=== PATIENT | female | born 1980 | race African-American/Black ===

== ENCOUNTER 2016-09-09 15:04 | Inpatient (IN) | payer OTHER ==
[~2016-09-09] VITALS: Ht 167.6 cm; Wt 67.8 kg
[2016-09-09 17:11] LABS: BASOPHILS % 1.1 % (0.0-2.0); EOSINOPHILS % 0.6 % (0.0-5.0); HEMATOCRIT. 37.4 % (36.0-48.0); HEMOGLOBIN. 11.9 g/dL (12.0-16.0); LYMPHOCYTES % 8.3 % (20.0-50.0); MEAN CORPUSCULAR HEMOGLOBIN 29.8 pg (28.0-32.0); MEAN CORPUSCULAR HGB CONC 31.9 g/dL (31.0-37.0); MEAN CORPUSCULAR VOLUME 93.4 fL (81.0-99.0); MEAN PLATELET VOLUME 6.8 fl (7.4-10.4); PLATELET 209 x1000/uL (130-400); RED CELL DISTRIBUTION WIDTH 14.7 % (11.6-14.6); WHITE BLOOD COUNT 7.5 x1000/uL (4.5-11.0)
[2016-09-09 17:24] LABS: ALANINE AMINOTRANSFERASE 30 IU/L (13-61); ALBUMIN 2.7 g/dL (3.4-5.0); ANION GAP 15; CALCIUM 8.5 mg/dL (8.5-10.1); CARBON DIOXIDE 29 mEq/L (21-32); CHLORIDE 102 mEq/L (98-107); INDEX HEMOLYSI 1 (1-3); INDEX ICTERIC 1 (1-4); INDEX LIPEMIC 1 (1-3); UREA NITROGEN BLOOD 79 mg/dL (7-21); eGFR 5 mL/min (>60)
[2016-09-09] MEDS ORDERED: DEXT 5% WATER 100 ML IV ONE (19:45)
[2016-09-09] MEDS ORDERED: ONDANSETRON HCL 4MG/2ML VIAL IV PRN (20:15)
[2016-09-09] MEDS ORDERED: IPRATROPIUM/ALBUTEROL 0.5-3(2.5)MG/3ML NEB INH PRN (20:15)
[2016-09-09] MEDS ORDERED: CLONIDINE 0.1MG TABLET PO PRN (20:15)
[2016-09-09] MEDS ORDERED: ACETAMINOPHEN 325MG TABLET PO PRN (20:15)
[2016-09-09] MEDS ORDERED: MAGNESIUM/ALUMINUM HYDROXIDE/SIMETHICONE 30ML UDC PO PRN (20:15)
[2016-09-09] MEDS ORDERED: DEXTROSE 50% WATER 50ML SYRINGE IV PRN (20:15)
[2016-09-09] MEDS: DEXTROSE 5% WATER 1,000 ML IV SCH (22:00)
[2016-09-09 22:24] LABS: ANION GAP 14; CALCIUM 8.4 mg/dL (8.5-10.1); CARBON DIOXIDE 31 mEq/L (21-32); CHLORIDE 101 mEq/L (98-107); CREATINE KINASE 153 IU/L (26-192); CREATINE KINASE MB FRACTION 1.1 ng/mL (0.5-3.6); INDEX HEMOLYSI 1 (1-3); INDEX ICTERIC 1 (1-4); INDEX LIPEMIC 1 (1-3); TROPONIN I < 0.02 ng/mL (0.00-0.04); eGFR 5 mL/min (>60)
[2016-09-09 22:29] LABS: UREA NITROGEN BLOOD 81 mg/dL (7-21)
[2016-09-09 23:25] VITALS: BP 116/78
[2016-09-10] VITALS: BP 116/78
[2016-09-10] MEDS: HYDROCODONE/ACETAMINOPHEN 5/325MG TABLET PO PRN ×2 (01:15→16:06)
[2016-09-10] MEDS ORDERED: PLAQUINIL (04:17)
[2016-09-10] MEDS ORDERED: PRED5TAB48 PO (04:17)
[2016-09-10] MEDS ORDERED: lozartan (04:17)
[2016-09-10] MEDS ORDERED: HYDR-4134 PO (04:17)
[2016-09-10] MEDS ORDERED: CALCIUM ACETATE (04:17)
[2016-09-10] MEDS ORDERED: FOLI-43 PO (04:17)
[2016-09-10 06:00] VITALS: BP 115/83
[2016-09-10 06:40] LABS: BASOPHILS % 1.1 % (0.0-2.0); EOSINOPHILS % 2.1 % (0.0-5.0); HEMATOCRIT. 34.6 % (36.0-48.0); HEMOGLOBIN. 10.8 g/dL (12.0-16.0); LYMPHOCYTES % 20.9 % (20.0-50.0); MEAN CORPUSCULAR HEMOGLOBIN 29.4 pg (28.0-32.0); MEAN CORPUSCULAR HGB CONC 31.3 g/dL (31.0-37.0); MEAN CORPUSCULAR VOLUME 93.8 fL (81.0-99.0); MEAN PLATELET VOLUME 7.4 fl (7.4-10.4); NEUTROPHILS % 65.9 % (40.0-76.0); PLATELET 212 x1000/uL (130-400); RED BLOOD CELL COUNT 3.69 mill/uL (4.2-5.4); RED CELL DISTRIBUTION WIDTH 14.2 % (11.6-14.6)
[2016-09-10 08:18] VITALS: BP 121/88
[2016-09-10] MEDS: DEXTROSE 50% WATER 50ML SYRINGE IV PRN (08:44)
[2016-09-10] MEDS: PREDNISONE 5MG TABLET PO SCH (08:45)
[2016-09-10] MEDS: HYDRALAZINE HCL 25MG TABLET PO SCH (08:45)
[2016-09-10] MEDS: FOLIC ACID 1MG TABLET PO SCH (08:45)
[2016-09-10] MEDS: LOSARTAN POTASSIUM 50 MG TABLET PO SCH (08:45)
[2016-09-10] MEDS: HYDROXYCHLOROQUINE SULFATE 200MG TABLET PO SCH (08:45)
[2016-09-10] MEDS: CALCIUM ACETATE 667MG CAPSULE PO SCH ×3 (08:45→18:26)
[2016-09-10] MEDS: DEXTROSE 5% WATER 1,000 ML IV SCH (09:01)
[2016-09-10 09:59] LABS: CREATINE KINASE 117 IU/L (26-192); CREATINE KINASE MB FRACTION 1.2 ng/mL (0.5-3.6); HDL CHOLESTEROL 24 mg/dL (40-59); INDEX HEMOLYSI 1 (1-3); INDEX ICTERIC 1 (1-4); INDEX LIPEMIC 1 (1-3); LDL CHOLESTEROL 93 mg/dL (5-100); TRIGLYCERIDE 207 mg/dL (0-150); TROPONIN I < 0.02 ng/mL (0.00-0.04)
[2016-09-10] MEDS: BLOOD SUGAR DIAGNOSTIC STRIP TEST SCH ×3 (13:05→21:26)
[2016-09-10 17:01] LABS: CLARITY URINE TURBID (CLEAR); COLOR URINE ORANGE (YELLOW); GLUCOSE URINE NEGATIVE (NEGATIVE); KETONES URINE NEGATIVE (NEGATIVE); LEUKOCYTE ESTERASE URINE 3+ (NEGATIVE); NITRITE URINE NEGATIVE (NEGATIVE); OCCULT BLOOD URINE 3+ (NEGATIVE); PROTEIN URINE 4+ (NEGATIVE); SPECIFIC GRAVITY URINE 1.015 (1.005-1.030); UROBILINOGEN URINE 0.2 E.U./dL (0.2-1.0)
[2016-09-10 17:31] LABS: BACTERIA URINE 2+; RBC URINE TNTC /hpf (0-2); SQUAMOUS EPITHELIAL CELL URINE 1+ /lpf (RARE/1+); WBC URINE TNTC /hpf (0-2)
[2016-09-10] MEDS: INSULIN LISPRO 100 UNITS/ML SUBCUT SCH ×2 (17:50→21:34)
[2016-09-10 18:30] LABS: *AMPHETAMINES SCREEN URINE NEGATIVE (NEGATIVE); *BARBITURATES SCREEN URINE NEGATIVE (NEGATIVE); *BENZODIAZEPINES SCREEN URINE NEGATIVE (NEGATIVE); *COCAINE SCREEN URINE NEGATIVE (NEGATIVE); CANNABINOID URINE SCREEN NEGATIVE (NEGATIVE); ECSTASY MDMA SCREEN URINE NEGATIVE (NEGATIVE); METHADONE URINE SCREEN NEGATIVE (NEGATIVE); OPIATES URINE SCREEN NEGATIVE (NEGATIVE); PHENCYCLIDINE URINE SCREEN NEGATIVE (NEGATIVE)
[2016-09-10 20:00] VITALS: BP 133/94
[2016-09-10 20:10] LABS: BODY FLUID MONOCYTES 91 %; BODY FLUID WBC 337 /cu mm (0-200)
[2016-09-10] MEDS ORDERED: ZOLPIDEM TARTRATE 5MG TABLET PO PRN (23:00)
[2016-09-11 00:01] VITALS: BP 138/94
[2016-09-11] MEDS: DEXTROSE 50% WATER 50ML SYRINGE IV PRN (00:01)
[2016-09-11 04:30] VITALS: BP 132/95
[2016-09-11] MEDS: BLOOD SUGAR DIAGNOSTIC STRIP TEST SCH ×7 (06:28→21:26)
[2016-09-11] MEDS: INSULIN LISPRO 100 UNITS/ML SUBCUT SCH ×4 (06:29→21:00)
[2016-09-11] MEDS ORDERED: DEXTROSE 5% WATER 1,000 ML IV SCH (06:45)
[2016-09-11 06:52] LABS: EOSINOPHILS % 1.7 % (0.0-5.0); HEMATOCRIT. 34.6 % (36.0-48.0); HEMOGLOBIN. 10.8 g/dL (12.0-16.0); LYMPHOCYTES % 17.3 % (20.0-50.0); MEAN CORPUSCULAR HGB CONC 31.3 g/dL (31.0-37.0); MEAN CORPUSCULAR VOLUME 92.4 fL (81.0-99.0); MEAN PLATELET VOLUME 7.3 fl (7.4-10.4); MONOCYTES % 9.5 % (2.0-8.0); NEUTROPHILS % 70.5 % (40.0-76.0); PLATELET 230 x1000/uL (130-400); RED BLOOD CELL COUNT 3.74 mill/uL (4.2-5.4); RED CELL DISTRIBUTION WIDTH 14.2 % (11.6-14.6); WHITE BLOOD COUNT 6.1 x1000/uL (4.5-11.0)
[2016-09-11 07:38] LABS: ALANINE AMINOTRANSFERASE 23 IU/L (13-61); ALBUMIN 2.1 g/dL (3.4-5.0); CHLORIDE 103 mEq/L (98-107); INDEX HEMOLYSI 1 (1-3); INDEX ICTERIC 1 (1-4); INDEX LIPEMIC 1 (1-3)
[2016-09-11 07:41] LABS: ANION GAP 15; CALCIUM 7.5 mg/dL (8.5-10.1); CARBON DIOXIDE 25 mEq/L (21-32); UREA NITROGEN BLOOD 74 mg/dL (7-21); eGFR 5 mL/min (>60)
[2016-09-11] MEDS: CALCIUM ACETATE 667MG CAPSULE PO SCH ×3 (07:50→17:45)
[2016-09-11 08:00] VITALS: BP 125/91
[2016-09-11] MEDS: HYDROXYCHLOROQUINE SULFATE 200MG TABLET PO SCH ×2 (09:00→11:10)
[2016-09-11] MEDS: PREDNISONE 5MG TABLET PO SCH ×2 (09:00→11:10)
[2016-09-11] MEDS: LOSARTAN POTASSIUM 50 MG TABLET PO SCH ×2 (09:00→11:09)
[2016-09-11] MEDS: HYDRALAZINE HCL 25MG TABLET PO SCH ×2 (09:00→11:09)
[2016-09-11] MEDS: FOLIC ACID 1MG TABLET PO SCH ×2 (09:00→11:10)
[2016-09-11] MEDS ORDERED: DEXTROSE 50% WATER 50ML SYRINGE IV PRN (12:30)
[2016-09-11] MEDS ORDERED: CEFTAZIDIME PENTAHYDRATE 1 G in DEXTROSE 5% WATER 50 ML IV SCH (13:00)
[2016-09-11] MEDS ORDERED: VANCOMYCIN 1,250 MG in DEXT 5% WATER 250 ML IV SCH (13:30)
[2016-09-11] MEDS ORDERED: VANCOMYCIN IV SCH (13:40)
[2016-09-11] MEDS ORDERED: [UNRECOGNIZED DRUG - OTHER] IV SCH (13:40)
[2016-09-11] MEDS ORDERED: CEFTAZIDIME PENTAHYDRATE IV SCH (13:40)
[2016-09-11] MEDS ORDERED: BLOOD SUGAR DIAGNOSTIC STRIP TEST SCH (17:20)
[2016-09-11 17:21] VITALS: BP 122/84
[2016-09-11 20:00] VITALS: BP 140/108
[2016-09-11] MEDS ORDERED: VANCOMYCIN 500 MG PREMIX 100 ML IV SCH (21:00)
[2016-09-12] MEDS ORDERED: LEVOFLOXACIN 250MG TABLET PO SCH (11:15)
== END 2016-09-11 23:05 | disposition short-term general hospital (02) | DRG 637 ==
LOC: ER 15:05 → 6WST 19:46
PROVIDERS: ADMIT Internal Medicine; ATTEND Internal Medicine
PROC: 3E1M39Z Irrigation of Peritoneal Cavity using Dialysate, Percutaneous Approach (ICD-10-PCS; principal; 2016-09-10)
DX: E11.649 Type 2 diabetes mellitus with hypoglycemia without coma (principal); E43 Unspecified severe protein-calorie malnutrition; I12.0 Hypertensive chronic kidney disease with stage 5 chronic kidney disease or end stage renal disease; N39.0 Urinary tract infection, site not specified; N18.6 End stage renal disease; D64.9 Anemia, unspecified; E11.22 Type 2 diabetes mellitus with diabetic chronic kidney disease; Z79.4 Long term (current) use of insulin; Z99.2 Dependence on renal dialysis; Z88.1 Allergy status to other antibiotic agents; B96.89 Other specified bacterial agents as the cause of diseases classified elsewhere
CPT/HCPCS: 36415; 80048; 80053; 80061; 80305; 81001; 82533; 82550; 82553; 82962; 84443; 84484; 85025; 87040; 87070; 87077; 87086; 87186; 87205; 89050; 93005; 93970; 96360; 96361; 99285; J0713; J1815; J3370; J7042; J7060; J7070; J7512

== ENCOUNTER 2017-02-25 17:09 | Inpatient (IN) | payer OTHER ==
[~2017-02-25] VITALS: Ht 170.2 cm; Wt 70.3 kg
[~2017-02-25 17:09] MED LIST: CALCIUM ACETATE; FOLI-43 PO; HYDR-4134 PO; PLAQUINIL; PRED5TAB48 PO; lozartan
[2017-02-25] MEDS ORDERED: MORPHINE SULFATE 4 MG/ML CPJ (NOT FOR IM USE) IV STA (17:26)
[2017-02-25] MEDS ORDERED: KETOROLAC 30MG/ML VIAL IV STA (17:26)
[2017-02-25] MEDS ORDERED: ONDANSETRON HCL 4MG/2ML VIAL IV STA (17:26)
[2017-02-25 17:54] LABS: BASOPHILS % 0.6 % (0.0-2.0); EOSINOPHILS % 1.5 % (0.0-5.0); HEMATOCRIT. 34.2 % (36.0-48.0); HEMOGLOBIN. 10.8 g/dL (12.0-16.0); LYMPHOCYTES % 19.6 % (20.0-50.0); MEAN CORPUSCULAR HEMOGLOBIN 29.1 pg (28.0-32.0); MEAN CORPUSCULAR VOLUME 91.6 fL (81.0-99.0); MEAN PLATELET VOLUME 6.7 fl (7.4-10.4); MONOCYTES % 5.6 % (2.0-8.0); NEUTROPHILS % 72.7 % (40.0-76.0); PLATELET 357 x1000/uL (130-400); RED BLOOD CELL COUNT 3.73 mill/uL (4.2-5.4); RED CELL DISTRIBUTION WIDTH 20.5 % (11.6-14.6)
[2017-02-25 17:57] LABS: CHLORIDE 99 mEq/L (98-107)
[2017-02-25 17:58] LABS: PROTHROMBIN TIME 10.8 sec (9.4-11.6)
[2017-02-25 18:00] LABS: CARBON DIOXIDE 25 mEq/L (21-32)
[2017-02-25 18:03] LABS: ETHANOL BLOOD < 10 mg/dL
[2017-02-25 18:06] LABS: HCG SCREEN NEGATIVE
[2017-02-26 00:20] VITALS: BP 115/75
[2017-02-26] MEDS ORDERED: FURO80TA3 PO (01:48)
[2017-02-26] MEDS ORDERED: BIOTIN (01:48)
[2017-02-26] MEDS ORDERED: TRAMADOL 50MG TABLET PO PRN (02:00)
[2017-02-26] MEDS ORDERED: ACETAMINOPHEN 325MG TABLET PO PRN (02:00)
[2017-02-26] MEDS ORDERED: ZOLPIDEM TARTRATE 5MG TABLET PO PRN (02:00)
[2017-02-26] MEDS ORDERED: ONDANSETRON HCL 4MG/2ML VIAL IV PRN (02:00)
[2017-02-26 04:00] VITALS: BP 102/70
[2017-02-26] MEDS ORDERED: OMEPRAZOLE 20MG CAPSULE EXTENDED RELEASE PO SCH (07:10)
[2017-02-26 08:00] VITALS: BP 95/62
[2017-02-26 08:00] LABS: HEMOGLOBIN. 10.4 g/dL (12.0-16.0); MEAN CORPUSCULAR VOLUME 92.2 fL (81.0-99.0); MEAN PLATELET VOLUME 6.6 fl (7.4-10.4); PLATELET 294 x1000/uL (130-400); RED BLOOD CELL COUNT 3.58 mill/uL (4.2-5.4); RED CELL DISTRIBUTION WIDTH 21.2 % (11.6-14.6)
[2017-02-26] MEDS ORDERED: PREDNISONE 1MG TABLET PO SCH (09:00)
[2017-02-26] MEDS ORDERED: HYDROXYCHLOROQUINE SULFATE 200MG TABLET PO SCH (09:00)
[2017-02-26] MEDS ORDERED: FUROSEMIDE 80MG TABLET PO SCH (09:00)
[2017-02-26] MEDS ORDERED: POTASSIUM CHLORIDE 20MEQ TABLET SR PO SCH (10:15)
[2017-02-26] MEDS ORDERED: VANCOMYCIN 1 G PREMIX 200 ML IV SCH (11:00)
[2017-02-26 12:00] VITALS: BP 101/65
[2017-02-26] MEDS ORDERED: VANCOMYCIN 1250MG in DEXTROSE 5% WATER 250ML IV SCH (12:00)
[2017-02-26 15:57] VITALS: BP 121/83
[2017-02-26 22:39] LABS: PLATELET ESTIMATE NORMAL
[2017-02-27] MEDS ORDERED: OMEPRAZOLE 20MG CAPSULE EXTENDED RELEASE PO SCH (07:10)
== END 2017-02-26 19:10 | disposition left against medical advice (07) | DRG 371 ==
LOC: ER 17:19 → 8WST 21:47 → EDBEDREQSVC 21:58 → EDBEDREQTM 21:58 → EDBEDREQ 21:58 → ENRESERV 22:01
PROVIDERS: ADMIT Family Medicine Adult Medicine; ATTEND Family Medicine Adult Medicine
DX: K65.9 Peritonitis, unspecified (principal); N18.6 End stage renal disease; E44.0 Moderate protein-calorie malnutrition; I12.0 Hypertensive chronic kidney disease with stage 5 chronic kidney disease or end stage renal disease; E87.6 Hypokalemia; D63.8 Anemia in other chronic diseases classified elsewhere; A18.4 Tuberculosis of skin and subcutaneous tissue; Z53.21 Procedure and treatment not carried out due to patient leaving prior to being seen by health care provider; D72.829 Elevated white blood cell count, unspecified; Z79.899 Other long term (current) drug therapy; Z88.1 Allergy status to other antibiotic agents; Z68.24 Body mass index [BMI] 24.0-24.9, adult
CPT/HCPCS: 36415; 71010; 76705; 80048; 80053; 80076; 83690; 84703; 85025; 85610; 87040; 93005; 93970; 96374; 96375; 99285; G0482; J1885; J2270; J2405; J3370; J7060; J7512

== ENCOUNTER 2018-03-25 18:16 | Emergency (ER) | payer OTHER ==
[~2018-03-25] VITALS: Ht 170.2 cm; Wt 68.0 kg
[~2018-03-25 18:16] MED LIST changes: +BIOTIN; +FURO80TA3 PO
[2018-03-25] MEDS ORDERED: SODIUM CHLORIDE 0.9% 1,000 ML IV ONE (18:52)
[2018-03-25] MEDS ORDERED: MORPHINE SULFATE 4 MG/ML CPJ (NOT FOR IM USE) IV ONE ×3 (19:00→22:00)
[2018-03-25] MEDS ORDERED: ONDANSETRON HCL 4MG/2ML INJ IV ONE (19:00)
[2018-03-25 19:22] LABS: BASOPHILS % 0.6 % (0.0-2.0); EOSINOPHILS % 0.1 % (0.0-5.0); HEMATOCRIT. 37.5 % (36.0-48.0); HEMOGLOBIN. 12.2 g/dL (12.0-16.0); LYMPHOCYTES % 15.1 % (20.0-50.0); MEAN CORPUSCULAR HEMOGLOBIN 30.9 pg (28.0-32.0); MEAN CORPUSCULAR VOLUME 94.9 fL (81.0-99.0); MEAN PLATELET VOLUME 7.6 fl (7.4-10.4); MONOCYTES % 7.4 % (2.0-8.0); NEUTROPHILS % 76.8 % (40.0-76.0); PLATELET 167 x1000/uL (130-400); RED BLOOD CELL COUNT 3.95 mill/uL (4.2-5.4); RED CELL DISTRIBUTION WIDTH 17.6 % (11.6-14.6)
[2018-03-25 19:28] LABS: CHLORIDE 100 mEq/L (98-107)
[2018-03-25 19:30] LABS: PROTHROMBIN TIME 10.5 sec (9.1-11.1)
[2018-03-25 19:50] LABS: HCG SCREEN NEGATIVE
[2018-03-25] MEDS ORDERED: KETOROLAC 15MG/ML VIAL IV NR (23:15)
[2018-03-25] MEDS ORDERED: ACETAMINOPHEN 500MG TABLET PO ONE (23:15)
[2018-03-26 06:56] VITALS: BP 132/72
[2018-03-26] MEDS ORDERED: CLONIDINE 0.1MG TABLET PO PRN (08:30)
[2018-03-26] MEDS ORDERED: ONDANSETRON HCL 4MG/2ML INJ IV PRN (19:00)
[2018-03-26] MEDS ORDERED: HYDROMORPHONE HCL/PF 2MG/ML CPJ IV PRN (19:00)
== END 2018-03-26 08:10 | disposition left against medical advice (07) ==
LOC: ER 18:16 → CANRESERV 03-26 06:59 → ENRESERV 03-26 06:59 → ER 03-26 08:10 → CANBEDREQ 03-27 02:07
DX: R10.31 Right lower quadrant pain (principal); R11.2 Nausea with vomiting, unspecified; I12.0 Hypertensive chronic kidney disease with stage 5 chronic kidney disease or end stage renal disease; N18.6 End stage renal disease; Z99.2 Dependence on renal dialysis; Z88.1 Allergy status to other antibiotic agents; Z79.899 Other long term (current) drug therapy
CPT/HCPCS: 36415; 71045; 76830; 76856; 80053; 83690; 84703; 85025; 85610; 93005; 96361; 96374; 96375; 96376; 99285; J2270; J2405; J7030

== ENCOUNTER 2018-04-25 00:58 | Emergency (ER) | payer OTHER ==
[~2018-04-25] VITALS: Ht 170.2 cm; Wt 64.7 kg
[2018-04-25] MEDS ORDERED: MORPHINE SULFATE 4 MG/ML CPJ (NOT FOR IM USE) IV STA (01:25)
[2018-04-25] MEDS ORDERED: ONDANSETRON HCL 4MG/2ML INJ IV STA (01:25)
[2018-04-25 02:04] LABS: BASOPHILS % 1.1 % (0.0-2.0); EOSINOPHILS % 2.3 % (0.0-5.0); HEMATOCRIT. 30.2 % (36.0-48.0); LYMPHOCYTES % 17.9 % (20.0-50.0); MEAN CORPUSCULAR HEMOGLOBIN 31.1 pg (28.0-32.0); MEAN CORPUSCULAR VOLUME 93.6 fL (81.0-99.0); MEAN PLATELET VOLUME 7.6 fl (7.4-10.4); MONOCYTES % 8.3 % (2.0-8.0); NEUTROPHILS % 70.4 % (40.0-76.0); PLATELET 209 x1000/uL (130-400); RED BLOOD CELL COUNT 3.23 mill/uL (4.2-5.4); RED CELL DISTRIBUTION WIDTH 16.9 % (11.6-14.6)
[2018-04-25 02:10] LABS: CHLORIDE 100 mEq/L (98-107)
[2018-04-25 02:14] LABS: HCG SCREEN NEGATIVE
[2018-04-25] MEDS ORDERED: FENTANYL CITRATE/PF 50MCG/ML 2ML VIAL IV ONE (02:45)
[2018-04-25] MEDS ORDERED: MIDAZOLAM HCL 2 MG/2 ML VIAL IV ONE (02:45)
[2018-04-25 03:17] VITALS: BP 141/91
[2018-04-25] MEDS ORDERED: HYDROCODONE/ACETAMINOPHEN 10/325MG TABLET PO ONE (06:00)
== END 2018-04-25 07:17 | disposition home or self-care (01) ==
LOC: ER 00:58
DX: R10.2 Pelvic and perineal pain (principal); N83.201 Unspecified ovarian cyst, right side; M32.9 Systemic lupus erythematosus, unspecified; N28.9 Disorder of kidney and ureter, unspecified; Z99.2 Dependence on renal dialysis
CPT/HCPCS: 36415; 74176; 76830; 76856; 80053; 83690; 84703; 85025; 96374; 96375; 99285; J2250; J2270; J2405; J3010

== ENCOUNTER 2019-03-20 02:09 | Emergency (ER) | payer OTHER ==
[~2019-03-20] VITALS: Ht 152.4 cm; Wt 67.0 kg
[2019-03-20 03:57] VITALS: BP 102/67
== END 2019-03-20 03:58 | disposition home or self-care (01) ==
LOC: ER 02:09
DX: T82.41XA Breakdown (mechanical) of vascular dialysis catheter, initial encounter (principal); N18.6 End stage renal disease; Z99.2 Dependence on renal dialysis; M32.9 Systemic lupus erythematosus, unspecified; Y82.8 Other medical devices associated with adverse incidents; Y92.9 Unspecified place or not applicable; Z88.3 Allergy status to other anti-infective agents; Z98.890 Other specified postprocedural states
CPT/HCPCS: 99283